=== PATIENT | female | born 1960 | race Caucasian/White ===

== ENCOUNTER 2017-10-15 12:46 | Emergency (ER) | payer OTHER ==
[~2017-10-15] VITALS: Ht 162.6 cm; Wt 62.6 kg
[~2017-10-15 12:46] MED LIST: ALBUTEROL2.5 MG/31 IH; ALVESCO6.1 GM; AUGMENTIN 875-1 EACH PO; AURODEX EAR DRO15 ML; BENADRYL25 MG PO; CARISOPRODOL 3350 MG PO; CHERATUSSIN DA480 ML PO; GUAIFENESIN WI120 ML PO; KEFLEX500 MG PO; NORCO 5-325 TA1 EAC1 PO; NORCO 5-325 TA1 EACH PO; PHENERGAN 25 MG25 M1 PO; PROVENTIL HFA6.7 G1 INH; SYMBICORT160 MCG/4. INH; ULTRAM 50MG TAB50 MG PO; VENLAFAXIN75 MG/1 T2 PO; XANAX 0.5 MG0.5 MG PO; ZOFRAN ODT4 MG PO
[2017-10-15] MEDS ORDERED: BENADRYL25 MG PO (13:32)
[2017-10-15] MEDS ORDERED: CELEXA10 MG PO (13:32)
[2017-10-15] MEDS ORDERED: LEXAPRO 10 MG T10 M2 PO (13:32)
[2017-10-15 14:01] LABS: AMP/METHAMP Negative (Negative); BARBITURATES Negative (Negative); BENZODIAZEPINES POSITIVE (Negative); COCAINE Negative (Negative); METHADONE Negative (Negative); OPIATES POSITIVE (Negative); PCP Negative (Negative); THC Negative (Negative)
[2017-10-15 14:23] VITALS: BP 146/76
== END 2017-10-15 14:26 | disposition home or self-care (01) ==
LOC: M.ERS 12:46
PROVIDERS: Nurse Practitioner
DX: S01.511A Laceration without foreign body of lip, initial encounter (principal); F41.9 Anxiety disorder, unspecified; F32.9 Major depressive disorder, single episode, unspecified; Z90.711 Acquired absence of uterus with remaining cervical stump; Z90.89 Acquired absence of other organs; Z90.49 Acquired absence of other specified parts of digestive tract; Z88.2 Allergy status to sulfonamides; W06.XXXA Fall from bed, initial encounter; Y93.89 Activity, other specified; Y92.89 Other specified places as the place of occurrence of the external cause; Y99.8 Other external cause status

== ENCOUNTER 2017-12-08 15:55 | Emergency (ER) | payer OTHER ==
[~2017-12-08] VITALS: Ht 162.6 cm; Wt 63.5 kg
[~2017-12-08 15:55] MED LIST changes: +CELEXA10 MG PO; +LEXAPRO 10 MG T10 M2 PO
[2017-12-08] MEDS ORDERED: EFFEXOR XR75 MG PO (16:03)
[2017-12-08 17:02] LABS: URINE BILIRUBIN NEGATIVE (Negative); URINE BLOOD NEGATIVE (Negative); URINE CLARITY CLEAR; URINE COLOR YELLOW; URINE GLUCOSE-RANDOM NEGATIVE (Negative); URINE KETONES NEGATIVE (Negative); URINE LEUKOCYTES TRACE (Negative); URINE NITRITE NEGATIVE (Negative); URINE PROTEIN TRACE (Negative); URINE SPECIFIC GRAVITY 1.025 (1.005-1.030); URINE UROBILINOGEN 0.2 E.U./dl (0.2-1.0)
[2017-12-08 17:18] LABS: BACTERIA None Seen /HPF (None Seen); MUCUS None Seen strn/LPF (None Seen); SQUAMOUS 4-10 Moderate /LPF (0-3); URINE RBC None Seen /HPF (0-2); URINE WBC 0-5 Rare /HPF (0-5)
[2017-12-08 17:20] LABS: CRYSTALS None Seen /LPF (None Seen); WAXY CAST 0-3 Few /LPF (None Seen)
[2017-12-08] MEDS ORDERED: NYSTATIN 100,0015 G1 TOP (17:40)
[2017-12-08] MEDS ORDERED: DIFLUCAN150 M1 PO (17:40)
[2017-12-08 17:53] VITALS: BP 130/75
== END 2017-12-08 17:54 | disposition home or self-care (01) ==
LOC: M.ERS 15:55
PROVIDERS: Nurse Practitioner Family
DX: B37.2 Candidiasis of skin and nail (principal); F41.9 Anxiety disorder, unspecified; F32.9 Major depressive disorder, single episode, unspecified; Z90.711 Acquired absence of uterus with remaining cervical stump; Z90.89 Acquired absence of other organs; Z88.2 Allergy status to sulfonamides

== ENCOUNTER 2018-06-08 10:12 | Emergency (ER) | payer OTHER ==
[~2018-06-08] VITALS: Ht 162.6 cm; Wt 68.5 kg
[~2018-06-08 10:12] MED LIST changes: +DIFLUCAN150 M1 PO; +EFFEXOR XR75 MG PO; +NYSTATIN 100,0015 G1 TOP
[2018-06-08] MEDS ORDERED: HYDROCODON-ACE1 EAC7 PO (11:47)
[2018-06-08 11:51] VITALS: BP 115/70
== END 2018-06-08 11:52 | disposition home or self-care (01) ==
LOC: M.ERS 10:12
DX: S93.491A Sprain of other ligament of right ankle, initial encounter (principal); F32.9 Major depressive disorder, single episode, unspecified; F41.9 Anxiety disorder, unspecified; Z90.49 Acquired absence of other specified parts of digestive tract; Z90.711 Acquired absence of uterus with remaining cervical stump; Z88.2 Allergy status to sulfonamides; W18.39XA Other fall on same level, initial encounter; Y93.89 Activity, other specified; Y92.89 Other specified places as the place of occurrence of the external cause; Y99.8 Other external cause status

== ENCOUNTER 2018-11-09 15:59 | Emergency (ER) | payer OTHER ==
[~2018-11-09] VITALS: Ht 162.6 cm; Wt 90.7 kg
[~2018-11-09 15:59] MED LIST changes: +HYDROCODON-ACE1 EAC7 PO
[2018-11-09] MEDS ORDERED: TRAMADOL 50 MG50 MG PO (16:15)
[2018-11-09] MEDS ORDERED: LISINOPRIL10 MG PO (16:15)
[2018-11-09 17:00] LABS: URINE BILIRUBIN NEGATIVE (Negative); URINE BLOOD NEGATIVE (Negative); URINE CLARITY CLEAR; URINE COLOR YELLOW; URINE GLUCOSE-RANDOM NEGATIVE (Negative); URINE KETONES NEGATIVE (Negative); URINE NITRITE-REFLEX NEGATIVE (Negative); URINE PROTEIN NEGATIVE (Negative); URINE SPECIFIC GRAVITY 1.015 (1.005-1.030); URINE UROBILINOGEN 0.2 E.U./dl (0.2-1.0)
[2018-11-09 17:01] LABS: URINE LEUKOCYTES-REFLEX 2+ (Negative)
[2018-11-09 17:05] LABS: BACTERIA-REFLEX 1-9 Few /HPF (None Seen); SQUAMOUS NONE SEEN /LPF (0-3); URINE RBC 0-2 Rare /HPF (0-2); URINE WBC-REFLEX 0-5 Rare /HPF (0-5)
[2018-11-09 17:06] LABS: CASTS None Seen /LPF (None Seen); CRYSTALS None Seen /LPF (None Seen)
[2018-11-09 17:25] LABS: AMP/METHAMP Negative (Negative); BARBITURATES Negative (Negative); BENZODIAZEPINES POSITIVE (Negative); COCAINE Negative (Negative); METHADONE Negative (Negative); OPIATES POSITIVE (Negative); PCP Negative (Negative); THC Negative (Negative)
[2018-11-09 17:49] LABS: ABSOLUTE LYMPHOCYTES 1.6 thou/uL (0.8-5.3); ABSOLUTE MONOCYTES 0.5 thou/uL (0.0-1.2); ABSOLUTE NEUTROPHILS 7.8 thou/uL (1.6-8.1); BASOPHILS 0.2 %; EOSINOPHILS 0.4 %; HEMATOCRIT 38.7 % (37.0-47.0); HEMOGLOBIN 13.1 gm/dL (12.0-15.0); LYMPHOCYTES 16.2 %; MCHC 33.8 g/dL (28.0-37.0); MCV 91.6 fL (80.0-100.0); MONOCYTES 5.1 %; MPV 8.9 fl. (7.2-11.1); NUCLEATED RBCS 0 /100WBC; PLATELET COUNT* 216 thou/uL (150-400); POLYS 78.1 %; RBC 4.22 mil/uL (4.20-5.00); RDW-CV 13.8 % (10.5-14.5)
[2018-11-09 17:58] LABS: APTT 30.1 Seconds (25.0-31.3); PROTIME 9.8 Seconds (9.20-11.50)
[2018-11-09 18:00] LABS: CALCIUM 9.5 mg/dL (8.5-10.1); CREATININE 0.9 mg/dL (0.6-1.3)
[2018-11-09 18:04] LABS: ALBUMIN 4.5 g/dL (3.4-5.0); TOTAL BILIRUBIN 0.4 mg/dL (<0.1-1.0); TOTAL PROTEIN 7.9 g/dL (6.4-8.2)
[2018-11-09 18:22] LABS: ACETAMINOPHEN < 2 ug/mL (10-30); SALICYLATE < 2.8 mg/dL (2.8-20.0)
[2018-11-09] MEDS ORDERED: KEFLEX500 M1 PO (19:26)
[2018-11-09] MEDS ORDERED: PYRIDIUM100 M1 PO (19:26)
[2018-11-09 19:39] VITALS: BP 145/76
== END 2018-11-09 19:39 | disposition home or self-care (01) ==
LOC: M.ERS 15:59
PROVIDERS: Nurse Practitioner Family
DX: N39.0 Urinary tract infection, site not specified (principal); F41.9 Anxiety disorder, unspecified; F32.9 Major depressive disorder, single episode, unspecified; Z90.710 Acquired absence of both cervix and uterus; Z88.2 Allergy status to sulfonamides; W19.XXXA Unspecified fall, initial encounter; Y93.89 Activity, other specified; Y92.89 Other specified places as the place of occurrence of the external cause; Y99.8 Other external cause status

== ENCOUNTER 2019-01-18 11:13 | Inpatient (IN) | payer OTHER ==
[~2019-01-18] VITALS: Ht 162.6 cm; Wt 59.9 kg
--- NOTE | ~2019-01-18 | CON ---
[address] [address] CONSULTATION Name: CHANELFLORENCE K Room: [address] IN M.R.#: [id number] Admission: 01/18/19 Attend Phys: Lisa Long MD Discharge: Date of : 60 Report #: [id number] THIS REPORT FOR: //name// CC: Devon Ibrahim DO Lisa Long MD ADDENDUM REFERRING PHYSICIAN: Dr. Lisa Long This is an addendum to job #[id number]. I have seen and examined the patient and agreed with plan that has been outlined by nurse practitioner, Nata Zaragoza. The patient has had a pretty rough year with recurrent urinary tract infections. Has been on multiple different antibiotics as per our nurse practitioner, Nata Zaragoza. She is admitted to the hospital with complaints of nausea, diffuse abdominal pain and bowel issues and found to have mild leukocytosis and elevated liver function test. She was just recently hospitalized at [facility] and was discharged to home after being treated for urinary tract infection and was sent home on Cipro. While this is certainly be an issue and caused some elevations of her LFTs, it is unclear whether this is the case or she has got some problems within distal biliary tree. When I reviewed her CT scan of the abdomen and pelvis, she has a markedly dilated common bile duct up to 12 mm with what appears to be some debris in the distal common bile duct. When I compared this to the CT scan of 11/09/2018, her common bile duct was not as prominent. This makes me wonder if she has got developing issues related to cholangitis. For this reason, I recommended she undergo an MRCP today. She has got issues with claustrophobia and will need to require some medication to help with the same. We will give her some Ativan 2 mg and Phenergan 12.5 mg IV prior to going down for the MRI. If necessary, she may need to have Benadryl as well, but hopefully this will be enough to help get her through. We will review her [facility] records regarding her liver function test from that hospital stay, which she had been exposed to. I agree with figuring out whether or not she has recurrent C. diff at this point in time. I will follow while she is in the hospital. I have discussed the plans with the patient as well and she is agreeable to the same. By: [id number] Parr DO /carson
--- NOTE | ~2019-01-18 | CON ---
[address] [address] CONSULTATION Name: FLORENCE CHANEL Room: [address] IN .R.#: [id number] Admission: 01/18/19 Attend Phys: Lisa Long MD Discharge: Date of : 60 Report #: [id number] THIS REPORT FOR: //name// CC: Devon Ibrahim DO Lisa Long DICTATED BY: Nata Zaragoza [facility] DATE OF SERVICE: 01/19/2019 Please note at the time of this dictation, the patient was seen and physically examined by myself. REASON FOR CONSULTATION: Abdominal pain and elevated LFTs. HISTORY OF PRESENT ILLNESS: This is a 58-year-old female who was brought in by EMS after her mother found her on the floor yesterday morning. She states the patient was very confused, but awake. Upon arrival, she had pill bottle scattered around her on the floor at that time. She denies any chronic narcotic use; however, on another consultation she states she has taken it for rotator cuff issues that she was given in past through the ER. The patient states that she has been having some nausea, which has been ongoing when she has her UTIs. She is just currently finishing her recent antibiotic ciprofloxacin. She cannot recall the other antibiotics that she has been on, which had been numerous for her recurrent UTIs and she has not seen Urology for this as well. She had been complaining of some suprapubic pain and the nausea 4 days prior to her admission. The patient has seen GI in the past. She states that between 2005 and currently she was in [place] and she had an upper scope done at [facility] and was told that she had an ulcer, we will obtain those records. She denies any NSAID use on a regular basis. She did have an upper scope by Dr. Parr back in 2005 that showed nonerosive reflux. In 2003, she had a colonoscopy with Dr. Stout, which was essentially negative and she has had none since that time. She denies any vomiting or fever or chills at this present time. She states up until yesterday, her bowels had been soft and formed, but since she has gotten here she has had 5 very watery stools. The patient does admit that she has a history of C. diff a couple of years ago, she was hospitalized at [place]. She was treated with vancomycin and had done well after that, all related to her frequent urinary tract infections and treated with antibiotics. She states she has been trying to do well and taking probiotics to help prevent this from happening again. The patient denies that she has ever been told that her liver enzymes have been elevated. ALLERGIES: SULFA. MEDICATIONS FROM HOME: finishing up Cipro, Soma, Zestril, Ultram [place] [address] CONSULTATION Name: FLORENCE CHANEL Room: [address] IN .Ale#: [id number] Admission: 01/18/19 Attend Phys: Lisa Long MD Discharge: Date of : 60 Report #: [id number] appears she was given some Keflex at one time back in October. PAST MEDICAL HISTORY: Anxiety, depression, history of C. diff, chronic UTIs. PAST SURGICAL HISTORY: Partial hysterectomy, sinus surgery, tonsillectomy, cholecystectomy. FAMILY HISTORY: Maternal side, maternal grandmother and aunt female cancers. SOCIAL HISTORY: Denies any tobacco use, alcohol only on special occasions and denies any illegal drug use. REVIEW OF SYSTEMS: Twelve-point review of systems is essentially negative except what is mentioned in the HPI. PHYSICAL EXAMINATION: VITAL SIGNS: Temperature 37.1, pulse 77, respirations 16, blood pressure 132/54. HEART: Regular rate and rhythm. LUNGS: Clear. ABDOMEN: Soft, positive bowel sounds in all 4 quadrants with some generalized tenderness noted throughout. LABORATORY DATA: Hemoglobin is 11.6, white count is 4.8, platelets 224. GFR is 103. PT is 10.3, INR is 1.0. Total bilirubin is 0.7. Alkaline phosphatase on admission was 310, she is 324 this morning. ALT on admission was 750, she is 849. AST was 1339 on admission, is now 849. Lipase is 94. Her B12 is 2202. Ferritin is 271. CT of the abdomen and pelvis shows normal liver, no focal lesions. Gallbladder is absent. Mild CBD dilatation at 12 mm with some slight intrahepatic biliary ductal dilatation present. She has a large volume retained stool noted, mild urinary bladder distention, otherwise negative. Chest x-ray and CT of the head were negative as well. IMPRESSION: 1. Elevated LFTs, possible etiology could be drug-induced secondary to the numerous antibiotic she has been on over the last several months. 2. Nausea. 3. Abdominal pain. 4. Diarrhea. 5. History of Clostridium difficile approximately 2 years ago. 6. History of an ulcer in the past in [place]. 7. Family history of female cancers on maternal side. PLAN: [place] [address] CONSULTATION Name: FLORENCE CHANEL Room: [address] IN [facility].#: [id number] Admission: 01/18/19 Attend Phys: Lisa Long MD Discharge: Date of : 60 Report #: [id number] 1. We will obtain records from [facility] and [facility] for her recent hospitalization for C. diff couple of years ago. 2. Acute hepatitis panel is pending. We will check remaining labs of AFP, alpha-1 antitrypsin, ceruloplasmin, GGTP, MARCELA, AMA. 3. Ultrasound of the abdomen. 4. We will await above results to make further recommendations. 5. The patient will need an outpatient colonoscopy given her family history and greater than 10 years. Thank you for allowing us to participate in this patient's care. Please do not hesitate to call with any questions in regard to this consult. By: [id number] Parr DO /carson
[~2019-01-18 11:13] MED LIST changes: +KEFLEX500 M1 PO; +LISINOPRIL10 MG PO; +PYRIDIUM100 M1 PO; +TRAMADOL 50 MG50 MG PO
[2019-01-18 11:14] VITALS: BP 148/99
[2019-01-18] MEDS ORDERED: CARISOPRODOL 3350 MG PO (11:19)
[2019-01-18 11:43] LABS: ABSOLUTE EOSINOPHILS 0.2 thou/uL (0.0-0.7); ABSOLUTE LYMPHOCYTES 0.9 thou/uL (0.8-5.3); ABSOLUTE MONOCYTES 0.6 thou/uL (0.0-1.2); ABSOLUTE NEUTROPHILS 3.1 thou/uL (1.6-8.1); BASOPHILS 0.9 %; EOSINOPHILS 3.7 %; HEMATOCRIT 35.7 % (37.0-47.0); HEMOGLOBIN 11.8 gm/dL (12.0-15.0); LYMPHOCYTES 19.3 %; MCH 30.4 pg (26.0-34.0); MCHC 33.2 g/dL (28.0-37.0); MCV 91.7 fL (80.0-100.0); MONOCYTES 11.5 %; MPV 7.2 fl. (7.2-11.1); NUCLEATED RBCS 0 /100WBC; PLATELET COUNT* 244 thou/uL (150-400); POLYS 64.6 %; RBC 3.89 mil/uL (4.20-5.00); RDW-CV 14.5 % (10.5-14.5); WBC 4.8 thou/uL (4.0-11.0)
[2019-01-18 11:51] LABS: APTT 25.7 Seconds (25.0-31.3); PROTIME 10.3 Seconds (9.20-11.50)
[2019-01-18 12:00] LABS: ANION GAP 8 mmol/L (7-16); BUN 9 mg/dL (7-18); CALCIUM 8.1 mg/dL (8.5-10.1); CHLORIDE 107 mmol/L (98-107); CO2 30 mmol/L (21-32); CREATININE 0.8 mg/dL (0.6-1.3); GLUCOSE 92 mg/dL (70-99); POTASSIUM 3.7 mmol/L (3.5-5.1); SODIUM 145 mmol/L (136-145); TROPONIN-I LEVEL <0.06 ng/mL (<0.06)
[2019-01-18 12:04] LABS: ALBUMIN 3.6 g/dL (3.4-5.0); ALKALINE PHOSPHATASE 310 U/L (46-116); CK-MB MASS 0.8 ng/mL (<0.5-3.6); NT-PRO BRAIN NAT PEPTIDE 85 pg/mL (<300); SGOT 1339 U/L (15-37); SGPT 750 U/L (30-65); TOTAL BILIRUBIN 0.7 mg/dL (<0.1-1.0); TOTAL PROTEIN 6.5 g/dL (6.4-8.2)
[2019-01-18 12:16] LABS: URINE BILIRUBIN NEGATIVE (Negative); URINE BLOOD NEGATIVE (Negative); URINE CLARITY CLEAR; URINE COLOR YELLOW; URINE GLUCOSE-RANDOM NEGATIVE (Negative); URINE KETONES NEGATIVE (Negative); URINE LEUKOCYTES-REFLEX 1+ (Negative); URINE NITRITE-REFLEX NEGATIVE (Negative); URINE PROTEIN NEGATIVE (Negative); URINE UROBILINOGEN 0.2 E.U./dl (0.2-1.0)
[2019-01-18 12:22] LABS: SQUAMOUS 0-3 Few /LPF (0-3)
[2019-01-18 12:23] LABS: BACTERIA-REFLEX 1-9 Few /HPF (None Seen); CASTS None Seen /LPF (None Seen); CRYSTALS None Seen /LPF (None Seen); MUCUS 0-3 Light strn/LPF (None Seen); URINE RBC 0-2 Rare /HPF (0-2); URINE WBC-REFLEX 0-5 Rare /HPF (0-5)
[2019-01-18 12:57] VITALS: BP 161/96
[2019-01-18] MEDS ORDERED: XANAX 0.5 MG0.5 M1 PO (13:42)
[2019-01-18 14:00] VITALS: BP 154/89
--- NOTE | 2019-01-18 16:01 | EKG ---
[place] [address] ELECTROCARDIOGRAM REPORT Name: FLORENCE CHANEL Room: [address] IN .R.#: [id number] Admission: 01/18/19 Attend Phys: Lisa Long MD Discharge: Date of : 60 Report #: [id number] THIS REPORT FOR: //name// [facility] ED Test Date: 2019-01-18 Test Time: 11:57:07 Pat Name: FLORENCE CHANEL Department: Room: [facility] Gender: F Dispatcher [employer]: : 1960 Requested By: Eulalio Landa Order Number: [id number] MD: Zeke Singh Measurements Intervals Sarah Ann Rate: 90 P: 58 CA: 201 QRS: 50 QRSD: 91 T: 36 QT: 420 QTc: 514 Interpretive Statements Sinus rhythm Borderline low voltage, extremity leads Prolonged QT interval No previous ECG available for comparison Electronically Signed On 01-18-2019 16:01:18 CDT by Zeke Singh [email or web address] <ELECTRONICALLY SIGNED> By: Zeke Singh MD, [facility] 01/18/19 1601 1157 56 Zeke Singh MD, FAC /EPI
[2019-01-18 20:00] VITALS: BP 132/84
[2019-01-19] VITALS: BP 128/78
[2019-01-19 04:00] VITALS: BP 137/73
[2019-01-19 05:11] LABS: ABSOLUTE EOSINOPHILS 0.3 thou/uL (0.0-0.7); ABSOLUTE LYMPHOCYTES 1.2 thou/uL (0.8-5.3); ABSOLUTE MONOCYTES 0.4 thou/uL (0.0-1.2); ABSOLUTE NEUTROPHILS 2.8 thou/uL (1.6-8.1); BASOPHILS 0.9 %; EOSINOPHILS 6.6 %; HEMATOCRIT 34.6 % (37.0-47.0); HEMOGLOBIN 11.6 gm/dL (12.0-15.0); LYMPHOCYTES 25.3 %; MCH 30.8 pg (26.0-34.0); MCHC 33.6 g/dL (28.0-37.0); MCV 91.7 fL (80.0-100.0); MONOCYTES 7.8 %; MPV 7.8 fl. (7.2-11.1); NUCLEATED RBCS 0 /100WBC; PLATELET COUNT* 224 thou/uL (150-400); POLYS 59.4 %; RBC 3.77 mil/uL (4.20-5.00); RDW-CV 14.8 % (10.5-14.5); WBC 4.8 thou/uL (4.0-11.0)
[2019-01-19 05:24] LABS: ALBUMIN 3.1 g/dL (3.4-5.0); CALCIUM 7.9 mg/dL (8.5-10.1); CREATININE 0.6 mg/dL (0.6-1.3); MAGNESIUM 1.6 mg/dL (1.8-2.4); POTASSIUM 4.1 mmol/L (3.5-5.1); TOTAL BILIRUBIN 0.7 mg/dL (<0.1-1.0); TOTAL PROTEIN 5.9 g/dL (6.4-8.2)
[2019-01-19 08:00] VITALS: BP 132/54
[2019-01-19 12:00] VITALS: BP 135/64
[2019-01-19 16:00] VITALS: BP 131/70
[2019-01-19 19:30] VITALS: BP 130/71
[2019-01-20 00:50] VITALS: BP 117/65
[2019-01-20 04:00] VITALS: BP 144/74
[2019-01-20 04:19] LABS: ABSOLUTE BASOPHILS 0.1 thou/uL (0.0-0.2); ABSOLUTE EOSINOPHILS 0.2 thou/uL (0.0-0.7); ABSOLUTE LYMPHOCYTES 2.1 thou/uL (0.8-5.3); ABSOLUTE MONOCYTES 0.6 thou/uL (0.0-1.2); ABSOLUTE NEUTROPHILS 4.4 thou/uL (1.6-8.1); EOSINOPHILS 2.5 %; HEMATOCRIT 33.9 % (37.0-47.0); HEMOGLOBIN 11.3 gm/dL (12.0-15.0); LYMPHOCYTES 29.1 %; MCH 30.4 pg (26.0-34.0); MCHC 33.3 g/dL (28.0-37.0); MCV 91.3 fL (80.0-100.0); MONOCYTES 7.8 %; MPV 7.3 fl. (7.2-11.1); NUCLEATED RBCS 0 /100WBC; PLATELET COUNT* 240 thou/uL (150-400); POLYS 59.6 %; RBC 3.71 mil/uL (4.20-5.00); RDW-CV 14.2 % (10.5-14.5); WBC 7.3 thou/uL (4.0-11.0)
[2019-01-20 04:41] LABS: ALBUMIN 3.2 g/dL (3.4-5.0); CALCIUM 8.4 mg/dL (8.5-10.1); CREATININE 0.7 mg/dL (0.6-1.3); POTASSIUM 3.8 mmol/L (3.5-5.1); TOTAL BILIRUBIN 0.6 mg/dL (<0.1-1.0); TOTAL PROTEIN 6.1 g/dL (6.4-8.2)
[2019-01-20 08:00] VITALS: BP 137/60
[2019-01-20 10:10] LABS: HEPATITIS B SURFACE AG Negative (Negative)
[2019-01-20 12:03] VITALS: BP 140/72
[2019-01-20] MEDS ORDERED: NEXIUM40 MG PO (12:45)
[2019-01-20] MEDS ORDERED: TRANSDERM-SCOP1 EACH TRANSDERM (12:45)
[2019-01-20] MEDS ORDERED: AUGMENTIN 875-1 EACH PO (12:45)
[2019-01-20] MEDS ORDERED: CARISOPRODOL 3350 MG PO (12:45)
[2019-01-20] MEDS ORDERED: SENNA PLUS TAB1 EACH PO (12:45)
[2019-01-20 13:19] VITALS: BP 140/72
[2019-01-20] MEDS ORDERED: XANAX1 MG PO (13:59)
[2019-01-20 19:10] LABS: IgG 672 mg/dL (700-1600); IgM 119 mg/dL (26-217)
[2019-01-21 03:06] LABS: CERULOPLASMIN 26.5 mg/dL (19.0-39.0)
[2019-01-21 10:08] LABS: ANA INTERPRETATION Negative (Negative)
== END 2019-01-20 15:29 | disposition home or self-care (01) | DRG 392 ==
LOC: M.ERS 11:13 → M.TBA-ER 12:34 → M.2W 12:34
PROVIDERS: Family Medicine; Internal Medicine Gastroenterology; Nurse Practitioner Adult Health; ADMIT Family Medicine
DX: K59.03 Drug induced constipation (principal); N39.0 Urinary tract infection, site not specified; F41.9 Anxiety disorder, unspecified; F32.9 Major depressive disorder, single episode, unspecified; T40.2X5A Adverse effect of other opioids, initial encounter; G89.29 Other chronic pain; M54.30 Sciatica, unspecified side; M25.519 Pain in unspecified shoulder; M75.100 Unspecified rotator cuff tear or rupture of unspecified shoulder, not specified as traumatic; J32.9 Chronic sinusitis, unspecified; Z90.711 Acquired absence of uterus with remaining cervical stump; Z88.2 Allergy status to sulfonamides; Z90.49 Acquired absence of other specified parts of digestive tract; Y92.9 Unspecified place or not applicable; Z79.899 Other long term (current) drug therapy